=== PATIENT | male | born 1955 | race Caucasian/White ===

== ENCOUNTER 2022-03-12 15:26 | Inpatient (IN) ==
[2022-03-12] MEDS ORDERED: ONDANSETRON 4 MG/2 ML VIAL IV PRN (17:02)
[2022-03-12] MEDS ORDERED: DEXTROSE 10% 250 ML BAG IV PRN (17:02)
[2022-03-12] MEDS ORDERED: GLUCAGON 1 MG VIAL IM PRN (17:02)
[2022-03-12] MEDS ORDERED: HYDROmorphone 1 MG/1 ML SYRINGE IV PRN (17:02)
[2022-03-12] MEDS ORDERED: PROCHLORPERAZINE 10 MG TABLET PO PRN (17:36)
[2022-03-12] MEDS ORDERED: oxyCODONE/ACETAMINOPHEN 5-325 MG TABLET PO PRN (17:36)
[2022-03-12] MEDS ORDERED: NICOTINE 21 MG/24 HR PATCH TRANSDERM PRN (17:40)
[2022-03-12] MEDS: LACTATED RINGERS 1,000 ML IV SCH (18:34)
[2022-03-12] MEDS: PIPERACILLIN/TAZOBACTAM 3,375 MG in SODIUM CHLORIDE 0.9% 100 ML IV SCH (18:34)
[2022-03-12 19:33] LABS: PT Patient Result > 178.9 SECS (10.5-12.0); Partial Thromboplastin Time 46.3 SECS (23.7-32.9)
[2022-03-12 19:38] LABS: INR > 17.6
[2022-03-12 21:02] LABS: Partial Thromboplastin Time 46.4 SECS (23.7-32.9)
[2022-03-12 21:57] LABS: PT Patient Result 65.8 SECS (10.5-12.0)
[2022-03-12 21:58] LABS: INR 6.3
[2022-03-12] MEDS: GABAPENTIN 100 MG CAPSULE PO SCH (22:26)
[2022-03-12] MEDS: ALPRAZolam 0.5 MG TABLET PO SCH (22:26)
[2022-03-12] MEDS: DEXAMETHASONE 4 MG TABLET PO SCH (22:26)
[2022-03-12] MEDS: LACTULOSE 20 GM/30 ML UDCUP PO SCH (22:26)
[2022-03-12] MEDS ORDERED: SODIUM CHLORIDE 0.9% 1,000 ML IV PRN (22:47)
[2022-03-13 04:43] LABS: Basophils % 0.2 % (0.0-0.8); Eosinophils % 0.2 % (0.00-10.9); Hematocrit 37.6 VOL% (42.0-52.0); Hemoglobin 13.7 GM/DL (14.0-18.0); Immature Granulocytes % 3.1 %; Immature Granulocytes Absolute 0.52 #; Lymphocytes # 0.5 10*3/uL (1.4-4.0); Lymphocytes % 2.9 % (21.2-54.2); Mean Corpuscular HGB Conc 36.4 GM/DL (32-36); Mean Corpuscular Volume 93.3 FL (87-102); Mean Platelet Volume 11.7 FL (9.6-12.0); Monocytes % 5.9 % (1.7-12.7); NRBC # 0.05 10*3/uL; Neutrophils % 87.7 % (38.7-73.9); Platelet Count 66 T/CUMM (130-400); Red Blood Count 4.03 MC/CUMM (3.8-5.5); Red Cell Distribution Width 19.5 % (9.3-17.3)
[2022-03-13 04:52] LABS: INR 3.7; PT Patient Result 37.1 SECS (10.5-12.0); Partial Thromboplastin Time 41.8 SECS (23.7-32.9)
[2022-03-13] MEDS: PIPERACILLIN/TAZOBACTAM 3,375 MG in SODIUM CHLORIDE 0.9% 100 ML IV SCH ×3 (04:52→20:38)
[2022-03-13 05:03] LABS: Albumin 2.3 G/DL (3.4-5.0); Calcium 8.4 MG/DL (8.5-10.1); Osmolality,Calculated 286.2 MOS/KG (273-304); Potassium 4.6 MMOL/L (3.5-5.1); Total Protein 4.9 G/DL (6.4-8.2)
[2022-03-13 05:05] LABS: Band Neutrophils 1 % (0-10); Lymphocytes 2 % (20-55); Total Cells Counted 100
[2022-03-13 05:06] LABS: Anisocytosis 1+; Bilirubin,Total 18.7 MG/DL (0.20-1.00); Polychromasia Slight; Target Cells Few
[2022-03-13 05:07] LABS: Platelet Estimate Decreased
[2022-03-13] MEDS: ALPRAZolam 0.5 MG TABLET PO SCH ×3 (10:13→20:39)
[2022-03-13] MEDS: GABAPENTIN 100 MG CAPSULE PO SCH ×3 (10:14→20:39)
[2022-03-13] MEDS: LACTULOSE 20 GM/30 ML UDCUP PO SCH ×2 (10:16→20:39)
[2022-03-13] MEDS: DEXAMETHASONE 4 MG TABLET PO SCH ×2 (10:16→20:39)
[2022-03-13] MEDS: LIDOCAINE/PRILOCAINE CREAM 5 GM TUBE TOP SCH (14:41)
[2022-03-13] MEDS: LACTATED RINGERS 1,000 ML IV SCH ×2 (14:41→19:16)
[2022-03-14] MEDS: LACTATED RINGERS 1,000 ML IV SCH ×2 (01:22→12:11)
[2022-03-14] MEDS: PIPERACILLIN/TAZOBACTAM 3,375 MG in SODIUM CHLORIDE 0.9% 100 ML IV SCH ×2 (04:27→14:19)
[2022-03-14 05:27] LABS: Basophils # 0.1 10*3/uL (0.0-0.2); Basophils % 0.3 % (0.0-0.8); Eosinophils % 0.1 % (0.00-10.9); Hematocrit 39.4 VOL% (42.0-52.0); Hemoglobin 14.2 GM/DL (14.0-18.0); Immature Granulocytes % 4.8 %; Lymphocytes # 0.4 10*3/uL (1.4-4.0); Mean Platelet Volume 11.5 FL (9.6-12.0); Monocytes # 0.9 10*3/uL (0.11-0.8); Monocytes % 4.3 % (1.7-12.7); NRBC # 0.05 10*3/uL; Neutrophils % 88.5 % (38.7-73.9); Platelet Count 67 T/CUMM (130-400); Red Blood Count 4.06 MC/CUMM (3.8-5.5); White Blood Count 20.9 T/CUMM (4-12)
[2022-03-14 05:52] LABS: Band Neutrophils 3 % (0-10); Lymphocytes 1 % (20-55); Macrocytosis 1+; Nucleated Red Blood Cells 1 (0-5); Polychromasia Slight; Target Cells Few; Total Cells Counted 100
[2022-03-14 05:53] LABS: Anisocytosis 1+; Hypochromia 1+; Platelet Estimate Decreased
[2022-03-14 05:55] LABS: Albumin 2.3 G/DL (3.4-5.0); Calcium 8.5 MG/DL (8.5-10.1); Osmolality,Calculated 291.1 MOS/KG (273-304); Potassium 3.8 MMOL/L (3.5-5.1); Total Protein 4.9 G/DL (6.4-8.2)
[2022-03-14 05:56] LABS: Bilirubin,Total 20.4 MG/DL (0.20-1.00)
[2022-03-14 09:14] LABS: PT Patient Result 60.2 SECS (10.5-12.0)
[2022-03-14 09:15] LABS: INR 5.8
[2022-03-14] MEDS: LACTULOSE 20 GM/30 ML UDCUP PO SCH (10:10)
[2022-03-14] MEDS: DEXAMETHASONE 4 MG TABLET PO SCH (10:10)
[2022-03-14] MEDS: GABAPENTIN 100 MG CAPSULE PO SCH (12:10)
[2022-03-14] MEDS: LIDOCAINE/PRILOCAINE CREAM 5 GM TUBE TOP SCH (12:10)
[2022-03-14] MEDS: ALPRAZolam 0.5 MG TABLET PO SCH (12:10)
[2022-03-14] MEDS ORDERED: fentaNYL 12 MCG/HR PATCH TRANSDERM SCH (13:00)
[2022-03-14] MEDS ORDERED: LORazepam 2 MG/1 ML VIAL IV PRN (13:31)
[2022-03-15] MEDS ORDERED: LORazepam 2 MG/1 ML VIAL IV ONE (11:43)
[2022-03-15] MEDS ORDERED: MORPHINE 2 MG/1 ML SYRINGE IV ONE (11:43)
[2022-03-15] MEDS ORDERED: DIAZEPAM 10 MG/2 ML SYRINGE IV ONE (12:00)
[2022-03-15] MEDS ORDERED: MORPHINE 2 MG/1 ML SYRINGE IV PRN (12:03)
[2022-03-15 12:39] VITALS: BP 87/54
== END 2022-03-15 12:41 | disposition expired | DRG 441 ==
LOC: N.ED 15:26 → N.EDINP 17:02 → SUATTDRO 17:02 → N.5E 17:50
PROVIDERS: ADMIT Emergency Medicine; ATTEND Internal Medicine